=== PATIENT | female | born 1990 | race Caucasian/White ===

== ENCOUNTER 2018-04-13 21:37 | Emergency (ER) | payer BC ==
[~2018-04-13] VITALS: Ht 167.6 cm; Wt 98.4 kg
[2018-04-13] MEDS ORDERED: KEFLEX500 M1 PO (22:20)
[2018-04-13 22:34] VITALS: BP 98/72
== END 2018-04-13 22:34 | disposition home or self-care (01) ==
LOC: M.ERS 21:37
DX: S01.512A Laceration without foreign body of oral cavity, initial encounter (principal); W26.9XXA Contact with unspecified sharp object(s), initial encounter; Y93.89 Activity, other specified; Y92.89 Other specified places as the place of occurrence of the external cause; Y99.8 Other external cause status

== ENCOUNTER 2018-10-19 14:40 | Emergency (ER) | payer OTHER ==
[~2018-10-19] VITALS: Ht 167.6 cm; Wt 102.1 kg
[~2018-10-19 14:40] MED LIST: KEFLEX500 M1 PO
[2018-10-19] MEDS ORDERED: NORCO 5-325 TA1 EAC1 PO (15:12)
[2018-10-19] MEDS ORDERED: PENICILLIN VK500 MG PO (15:12)
[2018-10-19 15:25] VITALS: BP 127/97
== END 2018-10-19 15:26 | disposition home or self-care (01) ==
LOC: M.ERS 14:40
DX: K04.7 Periapical abscess without sinus (principal); K02.9 Dental caries, unspecified; E28.2 Polycystic ovarian syndrome

== ENCOUNTER 2019-09-26 21:13 | Emergency (ER) | payer OTHER ==
[~2019-09-26] VITALS: Ht 167.6 cm; Wt 98.9 kg
[~2019-09-26 21:13] MED LIST changes: +NORCO 5-325 TA1 EAC1 PO; +PENICILLIN VK500 MG PO
[2019-09-26 21:23] VITALS: BP 141/78
[2019-09-26] MEDS ORDERED: NAPROSYN500 M1 PO (21:47)
== END 2019-09-26 22:07 | disposition home or self-care (01) ==
LOC: M.ERS 21:13
DX: S93.402A Sprain of unspecified ligament of left ankle, initial encounter (principal); X50.1XXA Overexertion from prolonged static or awkward postures, initial encounter; Y93.89 Activity, other specified; Y92.89 Other specified places as the place of occurrence of the external cause; Y99.8 Other external cause status